=== PATIENT | male | born 1975 | race Two or more races ===

== ENCOUNTER 2016-10-30 21:42 | Emergency (ER) | payer MEDICAID ==
[~2016-10-30] VITALS: Ht 165.1 cm; Wt 83.9 kg
[2016-10-30 21:45] VITALS: BP 133/73
[2016-10-30] MEDS ORDERED: IBUPROFEN 400 MG TABLET ONE (22:28)
[2016-10-30] MEDS ORDERED: IBUPROFEN 400 MG TABLET PO ONE (22:30)
--- NOTE | 2016-10-30 23:10 | NUR ---
CALLED NAMITA TO READ XRAY
--- NOTE | 2016-10-30 23:28 | NUR ---
JOHNNY WRAP APPLIED TO R KNEE.
--- NOTE | 2016-10-30 23:29 | NUR ---
Patient discharged to home in stable condition. Written and verbal after care instructions given. Patient verbalizes understanding of instruction. ambulatory with a steady gait
== END 2016-10-30 23:29 | disposition home or self-care (01) ==
LOC: ER 21:42
DX: S83.91XA Sprain of unspecified site of right knee, initial encounter (principal); R21 Rash and other nonspecific skin eruption; W01.0XXA Fall on same level from slipping, tripping and stumbling without subsequent striking against object, initial encounter; Y92.89 Other specified places as the place of occurrence of the external cause; Y93.89 Activity, other specified; Y99.8 Other external cause status
CPT/HCPCS: 73564; 99284; A4606; Z7610

== ENCOUNTER 2017-12-12 17:11 | Emergency (ER) | payer MEDICAID ==
[~2017-12-12] VITALS: Ht 162.6 cm; Wt 72.6 kg
--- NOTE | 2017-12-12 17:35 | NUR ---
PT CAME IN FOR NAUSEA/VOMITING X WEDNESDAY, FEELING DIZZY LIKE ROOM SPINNING. VSS. SEEN BY MD FOR EVAL. SAFETY AND COMFORT MEASURES PROVIDED. WILL MONITOR.
[2017-12-12] MEDS ORDERED: MECLIZINE HCL 25 MG TABLET ONE (17:54)
[2017-12-12] MEDS ORDERED: ONDANSETRON HCL/PF 4 MG/2 ML VIAL ONE (17:54)
[2017-12-12] MEDS ORDERED: ONDANSETRON HCL/PF 4 MG/2 ML VIAL IVP ONE (18:00)
[2017-12-12] MEDS ORDERED: MECLIZINE HCL 12.5 MG TABLET PO ONE (18:00)
[2017-12-12] MEDS ORDERED: IV NS 0.9% 1,000 ML BAG IV ONE (18:00)
--- NOTE | 2017-12-12 18:00 | NUR ---
IV ACCESS STARTED, BLOOD DRAWN FOR LABS. MEDICATED ORDERED.
[2017-12-12 18:07] LABS: BASOPHILS % (AUTO) 0.6 % (0.0-2.0); EOSINOPHILS % (AUTO) 2.6 % (0.0-6.0); HEMATOCRIT 44 % (39-51); HEMOGLOBIN 14.9 g/dL (13.5-17.5); LYMPHOCYTES # (AUTO) 2.1 /CMM (0.8-4.8); LYMPHOCYTES % (AUTO) 25.8 % (20.0-44.0); MEAN CORPUSCULAR HEMOGLOBIN 30 PG (26.0-33.0); MEAN CORPUSCULAR HGB CONC 34 g/dl (31.0-36.0); MEAN CORPUSCULAR VOLUME 89 fL (80-96); MONOCYTES # (AUTO) 0.6 /CMM (0.1-1.30); MONOCYTES % (AUTO) 7.6 % (2.0-12.0); NEUTROPHILS # (AUTO) 5.1 /CMM (1.8-8.9); NEUTROPHILS % (AUTO) 63.4 % (43.0-81.0); PLATELET COUNT (AUTO) 222 /CMM (150-450); RDW COEFFICIENT OF VARIATION 11.5 (11.5-15.0); RED BLOOD CELL COUNT(AUTO) 4.94 MIL/uL (4.5-6.0); WHITE BLOOD COUNT (AUTO) 7.9 K/uL (4.3-11.0)
[2017-12-12 18:24] LABS: CALCIUM, SERUM 8.9 mg/dL (8.5-10.1); CREATININE 0.9 mg/dL (0.6-1.3); POTASSIUM 3.8 mmol/L (3.5-5.1)
--- NOTE | 2017-12-12 19:16 | NUR ---
REPORT RECEIVED FROM СЕРГЕЙ LEMOS FOR [facility].
--- NOTE | 2017-12-12 19:25 | NUR ---
REPORT GIVEN TO PER RUSHING FOR [facility].
--- NOTE | 2017-12-12 20:08 | NUR ---
IV removed. Catheter intact and site benign. Pressure and 4x4 applied to site. No bleeding noted. Patient discharged to home in stable condition. Written and verbal after care instructions given. Patient verbalizes understanding of instruction. Patient ambulatory with a steady gait.
[2017-12-12 20:10] VITALS: BP 122/79
== END 2017-12-12 20:10 | disposition home or self-care (01) ==
LOC: ER 17:12
DX: I45.19 Other right bundle-branch block (principal); H81.10 Benign paroxysmal vertigo, unspecified ear; K02.9 Dental caries, unspecified; R11.2 Nausea with vomiting, unspecified
CPT/HCPCS: 36415; 70450; 80048; 85025; 93005; 96361; 96374; 99285; A4606; J2405; J7030; J8597; Z7610

== ENCOUNTER 2019-12-05 18:16 | Emergency (ER) | payer MEDICAID ==
[~2019-12-05] VITALS: Ht 165.1 cm; Wt 86.2 kg
[2019-12-05 18:26] VITALS: BP 167/90
[2019-12-05] MEDS ORDERED: TDAP [DIPH/PERTUSSIS/TET] 0.5 ML VIAL IM ONE ×2 (18:30→18:43)
[2019-12-05] MEDS ORDERED: LIDOCAINE /MPF 1% VIAL 5 ML VIAL ONE (19:21)
--- NOTE | 2019-12-05 20:01 | NUR ---
pt received sutures by Garth MUÑOZ at the bed side. pt tolerated the procedure well. TDAP administered. area was cleaned and dried. dry dressing and finger splint applied. pt medically stable for discharge. Patient discharged to home in stable condition. Rx and Written and verbal after care instructions given. Patient verbalizes understanding of instruction. pt was instructed to come back to the ER or see hi PCP in 48 hrs for wound check.
== END 2019-12-05 20:01 | disposition home or self-care (01) ==
LOC: ER 18:21
DX: S61.210A Laceration without foreign body of right index finger without damage to nail, initial encounter (principal); W25.XXXA Contact with sharp glass, initial encounter; Y93.89 Activity, other specified; Y92.89 Other specified places as the place of occurrence of the external cause; Y99.8 Other external cause status
CPT/HCPCS: 12002; 73140; 90471; 90715; 99283; A6403; J3490

== ENCOUNTER 2019-12-07 10:49 | Emergency (ER) | payer MEDICAID ==
[~2019-12-07] VITALS: Ht 165.1 cm; Wt 86.2 kg
[2019-12-07 11:08] VITALS: BP 145/87
--- NOTE | 2019-12-07 11:20 | NUR ---
WOUND CLEANED W/ NS, PAT DRY, NON ADHERENT DRESSING AND WRAPPED W/ KERLIX BY EMT.
--- NOTE | 2019-12-07 11:21 | NUR ---
Patient discharged to home in stable condition. Written and verbal after care instructions given. Patient verbalizes understanding of instruction. Pt ambulatory with a steady gait.
== END 2019-12-07 11:22 | disposition home or self-care (01) ==
LOC: ER 10:49
DX: S61.210D Laceration without foreign body of right index finger without damage to nail, subsequent encounter (principal); W25.XXXD Contact with sharp glass, subsequent encounter

== ENCOUNTER 2019-12-13 09:28 | Emergency (ER) | payer MEDICAID ==
[~2019-12-13] VITALS: Ht 165.1 cm; Wt 81.6 kg
[2019-12-13 09:34] VITALS: BP 142/99
== END 2019-12-13 10:04 | disposition home or self-care (01) ==
LOC: ER 09:28
DX: S61.210D Laceration without foreign body of right index finger without damage to nail, subsequent encounter (principal); X58.XXXD Exposure to other specified factors, subsequent encounter

== ENCOUNTER 2023-03-06 09:01 | Emergency (ER) | payer MEDICAID ==
[~2023-03-06] VITALS: Ht 165.1 cm; Wt 95.3 kg
[2023-03-06 09:15] VITALS: TEMP 98.4
[2023-03-06] MEDS ORDERED: IBUP-1957 PO (10:39)
[2023-03-06] MEDS ORDERED: KETOROLAC TROMETHAMINE INJ 30 MG/ML VIAL ONE (10:57)
[2023-03-06] MEDS ORDERED: KETOROLAC TROMETHAMINE INJ 30 MG/ML VIAL IM ONE (11:00)
[2023-03-06 11:14] VITALS: BP 142/68; O2SAT 97
== END 2023-03-06 11:16 | disposition home or self-care (01) ==
LOC: ER 09:14
DX: M25.562 Pain in left knee (principal); W01.0XXA Fall on same level from slipping, tripping and stumbling without subsequent striking against object, initial encounter; Y93.89 Activity, other specified; Y92.89 Other specified places as the place of occurrence of the external cause; Y99.8 Other external cause status
CPT/HCPCS: 99283; 96372; 73564; J1885